=== PATIENT | female | born 1990 | race Caucasian/White ===

== ENCOUNTER 2019-03-31 07:48 | Emergency (ER) | payer BC, MEDICAID ==
[~2019-03-31] VITALS: Ht 167.6 cm; Wt 81.6 kg
[2019-03-31 08:00] VITALS: BP_SYST 104
[2019-03-31] MEDS ORDERED: NACL 0.9% 1,000 ML IV ONE (08:28)
[2019-03-31] MEDS ORDERED: MORPHINE 4 MG/ML INJ. SYRINGE IVP ONE ×3 (08:30→09:45)
[2019-03-31 09:01] LABS: BASOPHILS % (AUTO) 0.6 % (0.0-2.0); EOSINOPHILS # (AUTO) 0.1 K/uL (0.0-0.4); EOSINOPHILS % (AUTO) 1.1 % (0.0-4.0); HEMATOCRIT 39.4 % (36-48); HEMOGLOBIN 13.3 g/dL (12.0-16.0); LYMPHOCYTES # (AUTO) 1.6 K/uL (1.0-5.5); LYMPHOCYTES % (AUTO) 24.6 % (20.5-51.5); MEAN CORPUSCULAR HEMOGLOBIN 28 pg (27-31); MEAN CORPUSCULAR HGB CONC 34 % (32-36); MEAN CORPUSCULAR VOLUME 83 fL (79.0-98.0); MONOCYTES # (AUTO) 0.3 K/uL (0.0-1.0); MONOCYTES % (AUTO) 4.6 % (1.7-9.3); NEUTROPHILS # (AUTO) 4.5 K/uL (1.8-7.7); NEUTROPHILS % (AUTO) 69.1 % (40.0-70.0); PLATELET COUNT (AUTO) 316 K/uL (130-430); RED BLOOD CELL COUNT(AUTO) 4.74 MIL/uL (4.2-6.2); RED CELL DISTRIBUTION WIDTH 13.7 % (9.0-15.0); WHITE BLOOD COUNT (AUTO) 6.5 K/uL (4.8-10.8)
[2019-03-31 09:15] LABS: CALCIUM 8.8 mg/dL (8.4-11.0); CREATININE 0.89 mg/dL (0.55-1.30); POTASSIUM 3.9 mmol/L (3.5-5.1)
[2019-03-31 09:24] LABS: ALBUMIN 3.5 g/dL (3.4-4.8); TOTAL BILIRUBIN 0.2 mg/dL (0.0-1.0)
[2019-03-31 12:22] LABS: BILIRUBIN,URINE NEGATIVE (NEGATIVE); BLOOD, URINE 2+ (NEGATIVE); CLARITY/URINE CLEAR (CLEAR); COLOR,URINE YELLOW (YELLOW); GLUCOSE,URINE NEGATIVE (NEGATIVE); KETONES,URINE NEGATIVE (NEGATIVE); LEUKOCYTE ESTERASE ,URINE NEGATIVE (NEGATIVE); NITRITE, URINE NEGATIVE (NEGATIVE); PH,URINE 6.5 (5.0-8.0); PROTEIN URINE NEGATIVE (NEGATIVE); UROBILINOGEN,URINE 0.2 (0.2-1.0)
[2019-03-31 12:41] LABS: BACTERIA,URINE RARE /HPF (None Seen); WBC,URINE 0-3 /HPF (0-3)
[2019-03-31 13:35] VITALS: BP_SYST 104
[2019-04-05 11:21] LABS: CHLAMYDIA TRACHOMATIS NAA Negative (Negative)
[2019-05-08 09:06] LABS: NEISSERIA GONORRHOEAE NAA Negative (Negative)
== END 2019-03-31 13:35 | disposition home or self-care (01) ==
LOC: SED 07:48
DX: N83.202 Unspecified ovarian cyst, left side (principal)
CPT/HCPCS: 36415; 76830; 76857; 80053; 81000; 81025; 83690; 85025; 87210; 87491; 87591; 96374; 99284; J2270; J7030

== ENCOUNTER 2020-07-25 12:47 | Emergency (ER) | payer BC, OTHER ==
[~2020-07-25] VITALS: Ht 167.6 cm; Wt 86.2 kg
[2020-07-25 12:54] VITALS: BP_SYST 124
[2020-07-25] MEDS ORDERED: KETOROLAC TROMETHAMINE 30 MG VIAL IM ONE (13:15)
[2020-07-25] MEDS ORDERED: DIAZEPAM 5 MG TABLET (VALIUM) PO ONE (13:15)
[2020-07-25] MEDS ORDERED: HYDROcodone/ACETAMIN 5-325 MG TAB (NORCO/ VICODIN) PO ONE (15:15)
[2020-07-25 15:26] VITALS: BP_SYST 124
== END 2020-07-25 15:25 | disposition home or self-care (01) ==
LOC: SED 12:47
DX: M54.31 Sciatica, right side (principal)
CPT/HCPCS: 73552; 93971; 96372; 99284; J1885